=== PATIENT | female | born 1945 | race Caucasian/White ===

== ENCOUNTER 2021-05-31 19:11 | Inpatient (IN) | payer MEDICARE ==
[~2021-05-31] VITALS: Ht 172.7 cm; Wt 75.9 kg
[2021-05-31 19:57] LABS: BASOPHILS % 0.2 % (0.0-2.0); EOSINOPHILS % 0.6 % (0.0-5.0); LYMPHOCYTES % 13.8 % (20.0-50.0); MEAN CORPUSCULAR HEMOGLOBIN 30.5 pg (28.0-32.0); MEAN CORPUSCULAR VOLUME 91.8 fL (81.0-99.0); MEAN PLATELET VOLUME 10.3 fl (7.4-10.4); MONOCYTES % 7.1 % (2.0-8.0); NEUTROPHILS % 78.3 % (40.0-76.0); PLATELET 173 x1000/uL (130-400); RED BLOOD CELL COUNT 3.93 mill/uL (4.2-5.4); RED CELL DISTRIBUTION WIDTH 14.3 % (11.6-14.6)
[2021-05-31] MEDS ORDERED: ASPIRIN 325MG EC TABLET PO NR (20:00)
[2021-05-31 20:02] LABS: CHLORIDE 109 mEq/L (98-107)
[2021-05-31 20:04] LABS: PROTHROMBIN TIME 11.1 sec (9.6-11.0)
[2021-05-31 20:06] LABS: ETHANOL BLOOD < 10 mg/dL
[2021-05-31 20:09] LABS: LDL CHOLESTEROL 79 mg/dL (5-100)
[2021-05-31] MEDS ORDERED: IOHEXOL-350 100 ML BOTTLE ONE (23:20)
[2021-06-01] VITALS (10 sets, daily range): BP systolic 108–169; BP diastolic 54–104
[2021-06-01] MEDS ORDERED: CYAN500T47 PO (01:21)
[2021-06-01] MEDS ORDERED: ASPI-986 PO (01:21)
[2021-06-01] MEDS ORDERED: METO25TA6 PO (01:21)
[2021-06-01] MEDS ORDERED: GLIM4TAB36 PO (01:21)
[2021-06-01] MEDS ORDERED: CHOL100022 (01:21)
[2021-06-01] MEDS ORDERED: LOSA100T32 PO (01:21)
[2021-06-01] MEDS ORDERED: METF-416 PO (01:21)
[2021-06-01] MEDS ORDERED: ACETAMINOPHEN 325MG TABLET PO PRN ×3 (01:30→03:00)
[2021-06-01] MEDS ORDERED: DEXTROSE 50% WATER 50ML SYRINGE IV PRN (01:30)
[2021-06-01] MEDS ORDERED: DIPHENHYDRAMINE 50MG/ML VIAL IV PRN (03:00)
[2021-06-01] MEDS ORDERED: ZOLPIDEM TARTRATE 5MG TABLET PO PRN (03:00)
[2021-06-01] MEDS ORDERED: MAGNESIUM/ALUMINUM HYDROXIDE/SIMETHICONE 30ML UDC PO PRN (03:00)
[2021-06-01] MEDS ORDERED: ONDANSETRON HCL 4MG/2ML INJ IV PRN (03:00)
[2021-06-01] MEDS: SODIUM CHLORIDE 0.9% INJ 3ML FLUSH IVF SCH ×2 (06:38→14:26)
[2021-06-01] MEDS ORDERED: GLIMEPIRIDE 2MG TABLET PO SCH (06:50)
[2021-06-01] MEDS: BLOOD SUGAR DIAGNOSTIC STRIP TEST SCH ×2 (07:01→11:52)
[2021-06-01] MEDS: INSULIN LISPRO 100 UNITS/ML SUBCUT SCH ×2 (07:01→11:52)
[2021-06-01] MEDS ORDERED: METFORMIN HCL 500MG TABLET PO SCH (07:20)
[2021-06-01] MEDS ORDERED: LOSARTAN POTASSIUM 50 MG TABLET PO SCH (09:00)
[2021-06-01] MEDS ORDERED: ASPIRIN 81MG TABLET PO SCH (09:00)
[2021-06-01] MEDS ORDERED: METOPROLOL TARTRATE 25MG TABLET PO SCH (09:00)
[2021-06-01] MEDS ORDERED: CLOPIDOGREL 75MG TABLET PO SCH (09:00)
[2021-06-01] MEDS ORDERED: CHOLECALCIFEROL (D3) 1000 UNIT TABLET PO SCH (09:00)
[2021-06-01] MEDS ORDERED: ATORVASTATIN CALCIUM 20MG TABLET PO SCH (21:00)
== END 2021-06-01 17:47 | disposition home or self-care (01) | DRG 64 ==
LOC: ER 19:11 → ENRESERV 20:47 → 3WST 21:24 → EDBEDREQTM 21:26 → EDBEDREQSVC 21:26 → EDBEDREQ 21:26
PROVIDERS: ADMIT Internal Medicine; ATTEND Internal Medicine
DX: I63.9 Cerebral infarction, unspecified (principal); G93.41 Metabolic encephalopathy; R29.705 NIHSS score 5; R47.01 Aphasia; I10 Essential (primary) hypertension; E11.9 Type 2 diabetes mellitus without complications; Z20.822 Contact with and (suspected) exposure to COVID-19; E78.5 Hyperlipidemia, unspecified; Z79.02 Long term (current) use of antithrombotics/antiplatelets; Z79.82 Long term (current) use of aspirin
CPT/HCPCS: 36415; 70496; 70498; 70551; 71045; 80053; 80320; 82962; 83036; 83721; 84484; 85025; 87426; 92523; 92610; 93005; 97162; 99291; Q9967; G0480